=== PATIENT | male | born 1990 | race American Indian/Alaskan Native ===

== ENCOUNTER 2018-02-26 22:40 | Emergency (ER) | payer OTHER ==
[2018-02-26 23:01] VITALS: BP 128/76; PULSE 71; RESP 16; TEMP 98.1; O2SAT 100
--- NOTE | 2018-02-27 01:13 | ED PDOC ---
HPI: Chest Pain Time Seen by Provider: 02/26/18 23:49 Chief Complaint (Nursing): Palpitations History Per: Patient History/Exam Limitations: no limitations Onset/Duration Of Symptoms: Hrs Current Symptoms Are (Timing): Still Present Additional Complaint(s): No PMHx presenting with palpitations x 1 day. States he drank coffee this morning with a weight-loss supplement and states that he's had on and off palpitations all day and still feels them currently. Denies chest pain, shortness of breath, or any other symptoms. Denies drug use. Past Medical History Reviewed: Historical Data, Nursing Documentation, Vital Signs Vital Signs: Last Vital Signs Temp 98.1 F 02/26/18 22:58 Pulse 71 02/26/18 22:58 Resp 16 02/26/18 22:58 BP 128/76 02/26/18 22:58 Pulse Ox 100 02/27/18 01:14 - Medical History PMH: Asthma - Surgical History Surgical History: Appendectomy - Family History Family History: States: No Known Family Hx - Allergies Allergies/Adverse Reactions: Allergies Allergy/AdvReac Type Severity Reaction Status Date / Time No Known Allergies Allergy Verified 02/26/18 22:58 SALO Risk Score for UA/NSTEMI - SALO Risk Score Age > 64: NO 3 or more CAD Risk Factors: NO Known CAD (Stenosis greater than 50%): NO Aspirin use in past 7 days: NO Severe Angina: NO EKG ST changes greater than 0.5mm: NO Positive Cardiac Marker: NO SALO Score: 0 Risk %: 5% Curb-65 Severity Score - CURB-65 Severity Score Confusion: No Bun >19mg/dl (>7mmol/L): No Respiratory Rate greater than/equal to 30: No Systolic BP <90 or Diastolic BP less than/equal 60mmHg: No Age >64: No Curb-65 Score: 0 Percentage 30-day mortality: 0.6% Review of Systems ROS Statement: Except As Marked, All Systems Reviewed And Found Negative Cardiovascular: Positive for: Chest Pain Respiratory: Negative for: Shortness of Breath Gastrointestinal: Negative for: Nausea, Vomiting Physical Exam - Reviewed Nursing Documentation Reviewed: Yes Vital Signs Reviewed: Yes - Physical Exam Appears: Positive for: Well, Non-toxic, No Acute Distress Head Exam: Positive for: ATRAUMATIC, NORMAL INSPECTION, NORMOCEPHALIC Skin: Positive for: Normal Color, Warm, DRY Eye Exam: Positive for: EOMI, Normal appearance, PERRL ENT: Positive for: Normal ENT Inspection Neck: Positive for: Normal, Painless ROM Cardiovascular/Chest: Positive for: Regular Rate, Rhythm Respiratory: Positive for: CNT, Normal Breath Sounds Gastrointestinal/Abdominal: Positive for: Normal Exam, Soft Back: Positive for: Normal Inspection Extremity: Positive for: Normal ROM Neurologic/Psych: Positive for: Alert, Oriented - ECG ECG: Positive for: Interpreted By Me ECG Rhythm: Positive for: Normal QRS, Normal ST Segment, Sinus Rhythm O2 Sat by Pulse Oximetry: 100 Medical Decision Making Medical Decision MakinAM Patient presenting with palpitations x 1 day --Currently vitals are stable, patient is very well appearing --EKG is NSR, no significant arrhythmia --Likely related to supplement used this AM with coffee --Will keep on monitor and get CXR 0300 --CXR negative --Advised abstension from weight loss products --Advised followup with PMD --Well appearing with normal vitals upon discharge Disposition - Clinical Impression Clinical Impression: Palpitations - Disposition Referrals: Murali Murillo Jr., MD [Family Provider] - Disposition: Routine/Home Disposition Time: 01:00 Condition: GOOD Instructions: Palpitations, Adverse Drug Reactions, Adult Forms: [facility] ([place])
--- NOTE | 2018-02-27 08:28 | RAD ---
Date of service: 02/27/2018 HISTORY: palpitations COMPARISON: No prior. TECHNIQUE: Chest PA and lateral FINDINGS: LUNGS: No active pulmonary disease. PLEURA: No significant pleural effusion identified. No pneumothorax apparent. CARDIOVASCULAR: Normal. OSSEOUS STRUCTURES: No significant abnormalities. VISUALIZED UPPER ABDOMEN: Normal. OTHER FINDINGS: None. IMPRESSION: No active disease.
== END 2018-02-27 01:48 | disposition home or self-care (01) ==
LOC: H.ER 22:40
DX: R00.2 Palpitations (principal); J45.909 Unspecified asthma, uncomplicated